=== PATIENT | male | born 1955 | race Caucasian/White ===

== ENCOUNTER 2017-07-21 15:33 | Inpatient (IN) | payer MEDICAID ==
[~2017-07-21] VITALS: Ht 172.7 cm; Wt 113.6 kg
[2017-07-21] MEDS ORDERED: ASPIRIN 325 MG TAB PO STA (15:47)
[2017-07-21] MEDS ORDERED: LABETALOL HCL 20MG INJ IV ONE ×2 (16:00→18:30)
[2017-07-21] MEDS ORDERED: SOD CHLORIDE 0.9% 1,000 ML IV ONE (16:00)
[2017-07-21 16:41] VITALS: TEMP 98.1
--- NOTE | 2017-07-21 16:51 | RADRPT ---
PROCEDURE: Portable chest x-ray. CLINICAL INDICATION: 61 years of age, male. Chest pain. TECHNIQUE: Portable AP view of the chest. COMPARISON: None available. FINDINGS: Atherosclerotic calcification and tortuosity of thoracic aorta. Borderline heart size. Lungs are clear. Negative for pleural effusion or pneumothorax. 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 No acute bony abnormality. IMPRESSION: Negative for evidence of an acute chest process. RPTAT: HCTS Physician Ailyn Date Time Electronically viewed and signed by Physician Ailyn on 07/21/2017 16:50 CS/
[2017-07-21] MEDS ORDERED: INSULIN LISPRO 100 UNIT/ML VIAL SC STA (18:28)
[2017-07-21] MEDS ORDERED: ACETAMINOPHEN 325 MG TAB PO PRN (18:30)
[2017-07-21] MEDS ORDERED: ONDANSETRON 4 MG INJ IV PRN ×2 (18:30→19:30)
--- NOTE | 2017-07-21 19:28 | HP ---
Date/Time of Note Date/Time of Note DATE: 07/21/17 TIME: 19:18 Assessment/Plan VTE Prophylaxis VTE Prophylaxis Intervention: SCD's Lines/Catheters IV Catheter Type (from Nrs): Saline Lock Assessment/Plan Assessment/Plan 61 yo M presents with hyperglycemia and hypertensive urgency. #hyperglycemia: suspect undiagnosed DM2 -check a1c -start basal/bolus insulin. no indication for insulin drip given no AG/no DKA -start IVFs -DM RN eval in the AM #HTN urgency: no evidence of end organ damage on clinical exam, therefore no compelling indication to drop pt's BP acutely to below a particular parameter over just a few hours. Indeed, dropping pt's BP too quickly could result in decreased organ perfusion! -start dual PO BP meds (max dose ccb, also start acei given DM2) -no compelling indication for PRNs. Pt has likely been living at this elevated BP for some time and again given he is asymptomatic, risk of rapid BP lowering likely outweighs benefit. Goal BP over next few days is <160/90 #thrombocytopenia: check LFTs to eval for chronic liver disease DVT prophx HPI/ROS Admit Date/Time Admit Date/Time Hx of Present Illness CC sent from clinic for elevated BG and BP HPI 61 yo M with pmhx obesity presented to a clinic today with c/o 2 weeks of dry mouth and polyuria. Eval there notable for hyperglycemia and htn and pt was sent to the ER for further eval. Pt does not recall the last time he saw a health care provider for any RHM. Pt denies any headache, blurred vision, chest pain, or SOB. PMH/Family/Social Past Medical History Medical History: no pertinent history Family History Significant Family History: diabetes Social History lives in the community Smoking Status: Former smoker Exam/Review of Systems Vital Signs Vitals Vital Signs Date Time Temp Pulse Resp B/P Pulse Ox O2 Delivery O2 Flow Rate FiO2 07/21/17 18:29 191/105 07/21/17 16:41 98.1 72 16 99 Room Air Exam Exam nad EOMI CN 2-12 intact, moves exts freely, 5/5 strength bl U and LEs lungs clear no mrg abd soft no rashes no edema BG noted. No AG. Labs Result Diagram: 07/21/17 1549 07/21/17 1549 Medications Medications Current Medications Miscellaneous Information (* Miscellaneous Pharmacy Order) Discontinue current oral sulfonylur... ONCE ONCE XX ; Start 07/21/17 at 19:00; Stop 07/21/17 at 19: 01; Status UNV Diagnostic Test (Pha) (Accu-Chek) 1 XX ; Start 07/22/17 at 02:00; Status UNV Insulin Glargine (Lantus) 17 unit QHS SC ; Start 07/21/17 at 21:00; Status UNV Miscellaneous Information (* Miscellaneous Pharmacy Order) HYPOGLYCEMIA PROTOCOL w... ONCE ONCE XX ; Start 07/21/17 at 19:00; Stop 07/21/17 at 19:01; Status UNV Miscellaneous Information Discontinue all previ... ONCE ONCE XX ; Start at 19:00; Stop 07/21/17 at 19:01; Status UNV Sodium Chloride (NS) 1,000 ml @ 125 mls/hr Q8H IV ; Start 07/21/17 at 19:30; Status UNV Amlodipine Besylate (Norvasc) 10 mg ONCE PO ; Start 07/21/17 at 19:30; Status UNV Lisinopril (Zestril) 20 mg ONCE ONCE PO ; Start 07/21/17 at 19:30; Stop at 19:31; Status UNV Ondansetron HCl (Zofran Tab) 4 mg Q6H PRN PO NAUSEA AND/OR VOMITING; Start 07/21/17 at 19:30; Status UNV Ondansetron HCl (Zofran Inj) 4 mg Q6H PRN IV NAUSEA AND/OR VOMITING; Start 07/21/17 at 19:30; Status UNV Metoclopramide HCl (Reglan) 10 mg Q6H PRN IV NAUSEA AND/OR VOMITING; Start 07/21/17 at 19:30; Status UNV Acetaminophen (Tylenol Tab) 650 mg Q6H PRN PO PAIN LEVEL 1-3 OR FEVER; Start 07/21/17 at 19:30; Status UNV Docusate Sodium (Colace) 100 mg Q12H PRN PO CONSTIPATION; Start 07/21/17 at 19: 30; Status UNV Magnesium Hydroxide (Milk Of Mag) 30 ml DAILY PRN PO CONSTIPATION; Start at 19:30; Status UNV Bisacodyl (Dulcolax) 5 mg DAILY PRN PO CONSTIPATION; Start 07/21/17 at 19:30; Status UNV Enoxaparin Sodium (Lovenox) 40 mg DAILY SC ; Start 07/22/17 at 09:00; Status UNV ALFRED CLINE MD Jul 21, 2017 19:28
[2017-07-21] MEDS ORDERED: ONDANSETRON 4 MG TAB PO PRN (19:30)
[2017-07-21] MEDS ORDERED: AMLODIPINE 10 MG TAB PO SCH (19:30)
[2017-07-21] MEDS ORDERED: METOCLOPRAMIDE 10 MG INJ IV PRN (19:30)
[2017-07-21] MEDS ORDERED: DOCUSATE SODIUM 100 MG CAP PO PRN (19:30)
[2017-07-21] MEDS ORDERED: NACL 0.9% 3 ML SYG IV SCH (19:30)
[2017-07-21] MEDS ORDERED: BISACODYL (EC) 5 MG TAB PO PRN (19:30)
[2017-07-21] MEDS ORDERED: MAGNESIUM HYDROXIDE 30ML CUP PO PRN (19:30)
[2017-07-21] MEDS ORDERED: LISINOPRIL 20 MG TAB PO ONE (19:30)
--- NOTE | 2017-07-21 19:50 | ERD ---
ER Documentation Chief Complaint Chief Complaint sent by pmd for htn and high blood glucose 406 @ clinic HPI This 61-year-old male presents with a high sugar at his clinic that he went to. He been peeing a lot more than usual. Also noted was extremely high blood pressure in triage. Patient does not like to see physicians and has i not seen a doctor before. He is unsure how long he might of had high blood pressure. Denies chest pain or shortness of breath currently. Not have any abdominal pain , nausea or vomiting. ROS All systems reviewed and are negative except as per history of present illness. Medications Home Meds No Active Prescriptions or Reported Meds Allergies Allergies: Coded Allergies: No Known Allergy (Unverified , 07/21/17) PMhx/Soc Medical and Surgical Hx: pt denies Medical Hx, pt denies Surgical Hx Hx Miscellaneous Medical Probl: No (PT denies going to the doctor.) Hx Alcohol Use: Yes (15 beers/week) Hx Substance Use: No Hx Tobacco Use: No Smoking Status: Former smoker Physical Exam Vitals Vital Signs Date Time Temp Pulse Resp B/P Pulse Ox O2 Delivery O2 Flow Rate FiO2 07/21/17 18:29 191/105 07/21/17 16:41 98.1 72 16 187/104 99 Room Air 07/21/17 15:37 98.1 92 18 211/108 99 Physical Exam Const: [] Head: Atraumatic Eyes: Normal Conjunctiva ENT: Normal External Ears, Nose and Mouth. Neck: Full range of motion..~ No meningismus. Resp: Clear to auscultation bilaterally Cardio: Regular rate and rhythm, no murmurs Abd: Soft, non tender, non distended. Normal bowel sounds Skin: No petechiae or rashes Back: No midline or flank tenderness Ext: No cyanosis, or edema Neur: Awake and alert Psych: Normal Mood and Affect Result Diagram: 07/21/17 1549 07/21/17 1549 Results 24 hrs Laboratory Tests Test 07/21/17 15:49 07/21/17 17:00 07/21/17 17:05 07/21/17 18:46 White Blood Count 10.110^3/ul Red Blood Count 4.7510^6/ul Hemoglobin 15.9g/dl Hematocrit 44.3% Mean Corpuscular Volume 93.3fl Mean Corpuscular Hemoglobin 33.5pg Mean Corpuscular Hemoglobin Concent 35.9g/dl Red Cell Distribution Width 11.9% Platelet Count 76635^3/UL Mean Platelet Volume 13.8fl Neutrophils % 65.4% Lymphocytes % 24.3% Monocytes % 6.4% Eosinophils % 3.1% Basophils % 0.4% Nucleated Red Blood Cells % 0.0/100WBC Neutrophils # 6.610^3/ul Lymphocytes # 2.510^3/ul Monocytes # 0.710^3/ul Eosinophils # 0.310^3/ul Basophils # 0.010^3/ul Nucleated Red Blood Cells # 0.010^3/ul Sodium Level 137mmol/L Potassium Level 3.8mmol/L Chloride Level 103mmol/L Carbon Dioxide Level 23mmol/L Anion Gap 15 Blood Urea Nitrogen 15mg/dl Creatinine 0.64mg/dl Glucose Level 474mg/dl Calcium Level 9.0mg/dl Troponin I < 0.012ng/ml B-Type Natriuretic Peptide 110PG/ML Total Bilirubin 0.5mg/dl Direct Bilirubin 0.00mg/dl Indirect Bilirubin 0.5mg/dl Aspartate Amino Transf (AST/SGOT) 76IU/L Alanine Aminotransferase (ALT/SGPT) 81IU/L Alkaline Phosphatase 167IU/L Total Protein 7.1g/dl Albumin 4.2g/dl Bedside Glucose 336mg/dL 311mg/dL Current Medications Medications (Trade) Dose Ordered Sig/Ron Route PRN Reason Start Time Stop Time Status Last Admin Dose Admin Aspirin (Aspirin) 325 mg ONCE STAT PO 07/21/17 15:47 07/21/17 15:52 DC 07/21/17 16:05 Labetalol HCl 20 mg 20 mg ONCE ONCE IV 07/21/17 16:00 07/21/17 16:01 DC 07/21/17 16:05 Sodium Chloride (NS) 1,000 ml @ 1,000 mls/hr Q1H ONCE IV 07/21/17 16:00 07/21/17 16:59 DC 07/21/17 16:05 Labetalol HCl (Labetalol) 20 mg ONCE ONCE IV 07/21/17 18:30 07/21/17 18:31 DC 07/21/17 18:48 Insulin Human Lispro (Humalog) 8 unit ONCE STAT SC 07/21/17 18:28 07/21/17 18:29 DC 07/21/17 18:46 Ondansetron HCl (Zofran Inj) 4 mg ER BRIDGE PRN IV NAUSEA AND/OR VOMITING 07/21/17 18:30 07/22/17 18:29 Acetaminophen (Tylenol Tab) 650 mg ER BRIDGE PRN PO MILD PAIN/FEVER 07/21/17 18:30 07/22/17 18:29 Miscellaneous Information (* Miscellaneous Pharmacy Order) Discontinue current oral sulfonylur... ONCE ONCE XX 07/21/17 19:00 07/21/17 19:01 UNV Diagnostic Test (Pha) (Accu-Chek) 1 ea 02 XX 07/22/17 02:00 UNV Insulin Glargine (Lantus) 17 unit QHS SC 07/21/17 21:00 UNV Insulin Aspart (Novolog Insulin Pen) 6 unit WITH MEALS SC 07/22/17 08:00 UNV Miscellaneous Information (* Miscellaneous Pharmacy Order) HYPOGLYCEMIA PROTOCOL w... ONCE ONCE XX 07/21/17 19:00 07/21/17 19:01 UNV Insulin Aspart (Novolog Insulin Pen) NOVOLOG *MILD* ALGORITHM WITH MEALS BEDTIME SC 07/21/17 21:00 UNV Miscellaneous Information Discontinue all previ... ONCE ONCE XX 07/21/17 19:00 07/21/17 19:01 UNV Sodium Chloride (NS) 1,000 ml @ 125 mls/hr Q8H IV 07/21/17 19:30 UNV Amlodipine Besylate (Norvasc) 10 mg ONCE PO 07/21/17 19:30 UNV Lisinopril (Zestril) 20 mg ONCE ONCE PO 07/21/17 19:30 07/21/17 19:31 UNV IV Flush (NS 3 ml) 3 ml PER PROTOCOL IV 07/21/17 19:30 UNV Ondansetron HCl (Zofran Tab) 4 mg Q6H PRN PO NAUSEA AND/OR VOMITING 07/21/17 19:30 UNV Ondansetron HCl (Zofran Inj) 4 mg Q6H PRN IV NAUSEA AND/OR VOMITING 07/21/17 19:30 UNV Metoclopramide HCl (Reglan) 10 mg Q6H PRN IV NAUSEA AND/OR VOMITING 07/21/17 19:30 UNV Acetaminophen (Tylenol Tab) 650 mg Q6H PRN PO PAIN LEVEL 1-3 OR FEVER 07/21/17 19:30 UNV Docusate Sodium (Colace) 100 mg Q12H PRN PO CONSTIPATION 07/21/17 19:30 UNV Magnesium Hydroxide (Milk Of Mag) 30 ml DAILY PRN PO CONSTIPATION 07/21/17 19:30 UNV Bisacodyl (Dulcolax) 5 mg DAILY PRN PO CONSTIPATION 07/21/17 19:30 UNV Enoxaparin Sodium (Lovenox) 40 mg DAILY SC 07/22/17 09:00 UNV Amlodipine Besylate (Norvasc) 10 mg DAILY PO 07/22/17 09:00 UNV Lisinopril (Zestril) 20 mg DAILY PO 07/22/17 09:00 UNV Procedures/MDM Likely long-standing hypertension hyperglycemia with malignant hypertension. Patient was given a liter of fluid in order to help lower sugar and then 8 mg of subcutaneous lispro insulin. He had refractory severe hypertension requiring 2 doses of labetalol in order to lower his pressure to a safer level and get the diastolic under 105. He is to be admitted for monitoring of sugar and blood pressure as well as starting on a regimen for both medical problems noted to prevent serious comorbidity. Signs of renal insufficiency yet. EKG interpretation: Normal sinus rhythm rate of 88, normal axis, normal intervals. Artifactual, no ST elevations or depressions concerning for acute ischemia but unable to evaluate T waves properly secondary to artifact. 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 Critical care time greater than 35 minutes: This includes treatment of malignant hypertension, use of multiple doses of vasoactive medication labetalol in order lower blood pressure to somewhat safer levels, treatment of severe hyperglycemia, review of chart, discussion with patient and admitting doctor. This does not include any billable procedures.. Departure Diagnosis: Primary Impression: Malignant hypertension Additional Impressions: Newly diagnosed diabetes Severe diabetic hypoglycemia Thrombocytopenia Condition: Serious FREDRICKJUANITAOMAR DO Jul 21, 2017 19:50
[2017-07-21] MEDS ORDERED: GLUCOSE GEL 15 GRAM TUBE BUCCAL PRN (20:00)
[2017-07-21] MEDS ORDERED: GLUCAGON 1 MG INJ IM PRN (20:00)
[2017-07-21] MEDS ORDERED: GLUCOSE GEL 15 GRAM TUBE PO PRN ×2 (20:00)
[2017-07-21] MEDS ORDERED: DEXTROSE 50% 50 ML SYRINGE IV PRN ×2 (20:00)
[2017-07-21 20:53] VITALS: PULSE 67
[2017-07-21] MEDS ORDERED: INSULIN GLARGINE [LANtus] 3 ML PEN SC SCH (21:00)
[2017-07-21 21:15] VITALS: BP 197/102; RESP 20
[2017-07-21 21:39] VITALS: Ht 172.7 cm; Wt 113.6 kg
[2017-07-21] MEDS: hydrALAzine 20 MG INJ IV PRN (21:51)
[2017-07-21] MEDS: INSULIN ASPART [NOVOLOG] 3 ML PEN SC SCH (22:03)
[2017-07-21] MEDS: SOD CHLORIDE 0.9% 1,000 ML IV SCH (22:30)
[2017-07-22] VITALS (15 sets, daily range): BP systolic 149–190; BP diastolic 72–93; PULSE 73–90; RESP 17–19
[2017-07-22] MEDS ORDERED: hydrALAzine 20 MG INJ IV ONE
[2017-07-22] MEDS: ACCU-CHEK XX SCH (02:12)
[2017-07-22] MEDS: SOD CHLORIDE 0.9% 1,000 ML IV SCH (02:50)
[2017-07-22] MEDS: INSULIN ASPART [NOVOLOG] 3 ML PEN SC SCH ×7 (08:14→20:41)
[2017-07-22] MEDS: ENOXAPARIN 40 MG/0.4 ML SYG SC SCH (08:14)
[2017-07-22] MEDS: AMLODIPINE 10 MG TAB PO SCH (08:18)
[2017-07-22] MEDS: hydrALAzine 20 MG INJ IV PRN ×2 (08:19→17:46)
[2017-07-22] MEDS ORDERED: LISINOPRIL 20 MG TAB PO SCH (09:00)
--- NOTE | 2017-07-22 09:20 | RADRPT ---
PROCEDURE: US Abdomen and Retroperitoneum. CLINICAL INDICATION: Elevated liver function tests. TECHNIQUE: Multiple real-time longitudinal and transverse images were acquired of the patient's ab domen and retroperitoneum utilizing a curved array transducer. COMPARISON: No prior studies are available for comparison. FINDINGS: The liver is normal in size and normal in echogenicity. The liver has a normal smooth surface. Ther e are 3 small liver cysts measuring 1.4 cm, 0.8 cm, and 0.7 cm. There is no other focal hepatic lesi on. Color Doppler and pulsed Doppler sonography demonstrate normal antegrade flow in the portal vein . The gallbladder is normal with no stones or wall thickening. The bile ducts are normal with the common bile duct measuring 5.0 mm in diameter. The spleen is normal in size. There is no focal splenic lesion. The pancreas is partially seen and is unremarkable. There is no free fluid. The right kidney measures 12.5 cm and the left kidney measures 13.3 cm. There is no renal mass. There is no hydronephrosis or calculus. The abdominal aorta is not dilated. The inferior vena cava is unremarkable. IMPRESSION: 1. Small benign hepatic cysts. 2. Otherwise unremarkable abdomen and retroperitoneum ultrasound. RPTAT: QQ .Dima Delgado MD, MD Date Time Electronically viewed and signed by .Dima Delgado MD, on 07/22/2017 09:20 .R/
[2017-07-22] MEDS ORDERED: POTASSIUM CHLORIDE (SR) 20 MEQ TAB PO STA (11:10)
--- NOTE | 2017-07-22 11:17 | PN ---
Date/Time of Note Date/Time of Note DATE: 07/22/17 TIME: 11:13 Assessment/Plan VTE Prophylaxis VTE Prophylaxis Intervention: SCD's Lines/Catheters IV Catheter Type (from Nrsg): Peripheral IV Assessment/Plan Assessment/Plan 1. Malignant HTN 2. DM with uncontrolled hyperglycemia 3. H/o HTN and DM II, insulin dependant Plan: stop IVF NS Give lantus 5 units SQ x 1 extra dose then change lantus to 20 units SQ QHS pt BP has been running despite getting amlodipine, lisinopril and IV hydrlaszine , will give hydrlazine 50mg po x 1 dose now then 50mg PO BID change lisinopril to 20mg po BID if BP continues to be high despite this change then we will consider switching him from amlodipine to nifedipine XL 60mg PO daily SCD for DVT prophylaxis Subjective 24 Hr Interval Summary Free Text/Dictation pt BP has been still running high, BS also high, on IVF NS at 125 cc/hr Exam/Review of Systems Vital Signs Vitals Vital Signs Date Time Temp Pulse Resp B/P Pulse Ox O2 Delivery O2 Flow Rate FiO2 07/22/17 08:15 85 07/22/17 08:08 178/79 07/22/17 07:38 97.3 19 96 07/22/17 04:30 Room Air Intake and Output 07/21/17 07/21/17 07/22/17 15:00 23:00 07:00 Intake Total 1000 ml 1050 ml Output Total 950 ml Balance 1000 ml 100 ml Exam Constitutional: alert Psych: no complaints Head: normocephalic Eyes: nl conjunctiva Neck: non-tender, supple Respiratory: clear to auscultation, diminished breath sounds, normal air movement Cardiovascular: nl pulses, regular rate and rhythm Gastrointestinal: non-tender, soft Musculoskeletal: nl extremities to inspection Extremities: normal pulses Neurological: DIRECTOR OF PHYSICAL SECURITY II-XII intact, nl mental status, nl speech, nl strength Results Result Diagram: 07/22/1751107/22/17511 Results 24 hrs Laboratory Tests Test 07/21/17 15:49 07/21/17 17:00 07/21/17 17:05 07/21/17 18:46 White Blood Count 10.1 Red Blood Count 4.75 Hemoglobin 15.9 Hematocrit 44.3 Mean Corpuscular Volume 93.3 Mean Corpuscular Hemoglobin 33.5 H Mean Corpuscular Hemoglobin Concent 35.9 Red Cell Distribution Width 11.9 Platelet Count 109 L Mean Platelet Volume 13.8 H Neutrophils % 65.4 Lymphocytes % 24.3 Monocytes % 6.4 Eosinophils % 3.1 Basophils % 0.4 Nucleated Red Blood Cells % 0.0 Neutrophils # 6.6 Lymphocytes # 2.5 Monocytes # 0.7 Eosinophils # 0.3 Basophils # 0.0 Nucleated Red Blood Cells # 0.0 Sodium Level 137 Potassium Level 3.8 Chloride Level 103 Carbon Dioxide Level 23 Anion Gap 15 Blood Urea Nitrogen 15 Creatinine 0.64 Glucose Level 474 *H Calcium Level 9.0 Troponin I < 0.012 B-Type Natriuretic Peptide 110 Hemoglobin A1c 12.1 H Total Bilirubin 0.5 Direct Bilirubin 0.00 Indirect Bilirubin 0.5 Aspartate Amino Transf (AST/SGOT) 76 H Alanine Aminotransferase (ALT/SGPT) 81 H Alkaline Phosphatase 167 H Total Protein 7.1 Albumin 4.2 Bedside Glucose 336 H 311 H Test 07/21/17 21:49 07/21/17 22:07 07/22/17 02:08 07/22/17 05:12 Bedside Glucose 283 H 313 H Creatine Kinase 64 55 Creatine Kinase Index 1.9 1.8 Creatinine Kinase MB (Mass) 1.22 0.98 Troponin I < 0.012 0.018 White Blood Count 10.0 Red Blood Count 4.44 L Hemoglobin 14.8 Hematocrit 41.9 L Mean Corpuscular Volume 94.4 Mean Corpuscular Hemoglobin 33.3 H Mean Corpuscular Hemoglobin Concent 35.3 Red Cell Distribution Width 12.2 Platelet Count 95 L Mean Platelet Volume 13.9 H Neutrophils % 70.7 Lymphocytes % 19.4 Monocytes % 5.3 Eosinophils % 3.9 Basophils % 0.4 Nucleated Red Blood Cells % 0.0 Neutrophils # 7.1 Lymphocytes # 1.9 Monocytes # 0.5 Eosinophils # 0.4 Basophils # 0.0 Nucleated Red Blood Cells # 0.0 Sodium Level 143 Potassium Level 3.3 L Chloride Level 111 H Carbon Dioxide Level 24 Anion Gap 11 Blood Urea Nitrogen 11 Creatinine 0.56 L Glucose Level 270 #H Calcium Level 8.4 Phosphorus Level 3.2 Magnesium Level 1.9 Total Bilirubin 0.5 Direct Bilirubin 0.00 Indirect Bilirubin 0.5 Aspartate Amino Transf (AST/SGOT) 71 H Alanine Aminotransferase (ALT/SGPT) 79 H Alkaline Phosphatase 121 Total Protein 6.3 Albumin 3.4 Globulin 2.90 Albumin/Globulin Ratio 1.17 Triglycerides Level 127 Cholesterol Level 118 LDL Cholesterol, Calculated 56 HDL Cholesterol 37 Cholesterol/HDL Ratio 3.1 Thyroid Stimulating Hormone (TSH) 1.110 Hepatitis C Antibody NEGATIVE Test 07/22/17 08:10 Bedside Glucose 228 H Medications Medications Current Medications Diagnostic Test (Pha) (Accu-Chek) 1 ea 02 XX Last administered on 07/22/17 02: 12; Admin Dose 1 EA; Start 07/22/17 at 02:00 Ondansetron HCl (Zofran Tab) 4 mg Q6H PRN PO NAUSEA AND/OR VOMITING; Start 07/21/17 at 19:30 Ondansetron HCl (Zofran Inj) 4 mg Q6H PRN IV NAUSEA AND/OR VOMITING; Start 07/21/17 at 19:30 Metoclopramide HCl (Reglan) 10 mg Q6H PRN IV NAUSEA AND/OR VOMITING; Start 07/21/17 at 19:30 Acetaminophen (Tylenol Tab) 650 mg Q6H PRN PO PAIN LEVEL 1-3 OR FEVER; Start 07/21/17 at 19:30 Docusate Sodium (Colace) 100 mg Q12H PRN PO CONSTIPATION; Start 07/21/17 at 19: 30 Magnesium Hydroxide (Milk Of Mag) 30 ml DAILY PRN PO CONSTIPATION; Start at 19:30 Bisacodyl (Dulcolax) 5 mg DAILY PRN PO CONSTIPATION; Start 07/21/17 at 19:30 Enoxaparin Sodium (Lovenox) 40 mg DAILY SC Last administered on 07/22/17 08:14 ; Admin Dose 40 MG; Start 07/22/17 at 09:00 Amlodipine Besylate (Norvasc) 10 mg DAILY PO Last administered on 07/22/17 08: 18; Admin Dose 10 MG; Start 07/22/17 at 09:00 Miscellaneous Information 1 ea NOTE XX ; Start 07/21/17 at 20:00 Glucose (Glutose) 15 gm Q15M PRN PO DECREASED GLUCOSE; Start 07/21/17 at 20:00 Glucose (Glutose) 22.5 gm Q15M PRN PO DECREASED GLUCOSE; Start 07/21/17 at 20: 00 Dextrose (D50w Syringe) 25 ml Q15M PRN IV DECREASED GLUCOSE; Start 07/21/17 at 20:00 Dextrose (D50w Syringe) 50 ml Q15M PRN IV DECREASED GLUCOSE; Start 07/21/17 at 20:00 Glucagon (Glucagen) 1 mg Q15M PRN IM DECREASED GLUCOSE; Start 07/21/17 at 20:00 Glucose (Glutose) 15 gm Q15M PRN BUCCAL DECREASED GLUCOSE; Start 07/21/17 at 20 :00 Hydralazine HCl (Apresoline) 10 mg Q4H PRN IV ELEVATED BLOOD PRESSURE Last administered on 07/22/17 08:19; Admin Dose 10 MG; Start 07/21/17 at 21:30 Lisinopril (Zestril) 20 mg BID PO ; Start 07/22/17 at 21:00 Hydralazine HCl (Apresoline) 50 mg ONCE ONCE PO ; Start 07/22/17 at 11:30; Stop 07/22/17 at 11:31 Hydralazine HCl (Apresoline) 50 mg BID PO ; Start 07/22/17 at 21:00; Status UNV Insulin Glargine (Lantus) 5 unit ONCE ONCE SC ; Start 07/22/17 at 11:30; Stop 07/22/17 at 11:31; Status UNV Insulin Glargine (Lantus) 20 unit QHS SC ; Start 07/22/17 at 21:00; Status CHAPO SOSA MD Jul 22, 2017 11:17
[2017-07-22] MEDS ORDERED: INSULIN GLARGINE [LANtus] 3 ML PEN SC ONE (11:30)
[2017-07-22] MEDS: LISINOPRIL 20 MG TAB PO SCH (20:29)
[2017-07-22] MEDS: INSULIN GLARGINE [LANtus] 3 ML PEN SC SCH (20:41)
[2017-07-23] VITALS (11 sets, daily range): BP systolic 140–187; BP diastolic 83–95; PULSE 69–101; RESP 16–20
[2017-07-23] MEDS: ACCU-CHEK XX SCH (02:12)
[2017-07-23] MEDS: hydrALAzine 20 MG INJ IV PRN ×2 (05:01→12:08)
[2017-07-23] MEDS: LISINOPRIL 20 MG TAB PO SCH ×2 (08:16→20:58)
[2017-07-23] MEDS: AMLODIPINE 10 MG TAB PO SCH (08:16)
[2017-07-23] MEDS: INSULIN ASPART [NOVOLOG] 3 ML PEN SC SCH ×7 (08:21→21:03)
[2017-07-23] MEDS: ENOXAPARIN 40 MG/0.4 ML SYG SC SCH (08:22)
--- NOTE | 2017-07-23 13:24 | PN ---
Date/Time of Note Date/Time of Note DATE: 07/23/17 TIME: 13:19 Assessment/Plan VTE Prophylaxis VTE Prophylaxis Intervention: SCD's Lines/Catheters IV Catheter Type (from Nrs): Saline Lock Urinary Cath still in place: No Assessment/Plan Assessment/Plan 1. Malignant HTN 2. DM with uncontrolled hyperglycemia 3. H/o HTN and DM II, insulin dependant Plan: continue lantus to 20 units SQ QHS- increase mealtime novolog to 10 units TID with meal pt BP has been running high despite adjustment in BP meds yesterday( increasing lisinopril to 20mg BID, Hydralazine to 50mg BID)- today BP is still in systolic 180s- will d/c amlodipine, start pt on Procardia XL 60mg PO BID downgrade to med/surge floor SCD for DVT prophylaxis Subjective 24 Hr Interval Summary Free Text/Dictation BP is still running high, systolic in 180s despite being adjustment in BP meds, BS in 250s Exam/Review of Systems Vital Signs Vitals Vital Signs Date Time Temp Pulse Resp B/P Pulse Ox O2 Delivery O2 Flow Rate FiO2 07/23/17 12:13 99 07/23/17 11:39 98.0 20 187/92 98 07/22/17 20:00 Room Air Intake and Output 07/22/17 07/22/17 07/23/17 15:00 23:00 07:00 Intake Total 1100 ml 700 ml Balance 1100 ml 700 ml Exam Constitutional: alert Psych: no complaints Head: normocephalic Eyes: nl conjunctiva Neck: non-tender, supple Respiratory: clear to auscultation, diminished breath sounds, normal air movement Cardiovascular: nl pulses, regular rate and rhythm Gastrointestinal: non-tender, soft Musculoskeletal: nl extremities to inspection Extremities: normal pulses 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, nl mental status, nl speech, nl strength Results Result Diagram: 07/23/17 0800 07/23/17 0800 Results 24 hrs Laboratory Tests Test 07/22/17 16:59 07/22/17 20:32 07/23/17 02:00 07/23/17 08:00 Bedside Glucose 211 246 H 224 H White Blood Count 10.1 Red Blood Count 4.82 Hemoglobin 16.0 Hematocrit 46.6 Mean Corpuscular Volume 96.7 Mean Corpuscular Hemoglobin 33.2 H Mean Corpuscular Hemoglobin Concent 34.3 Red Cell Distribution Width 12.5 Platelet Count 106 L Mean Platelet Volume 13.6 H Neutrophils % 67.0 Lymphocytes % 21.4 Monocytes % 6.0 Eosinophils % 4.7 Basophils % 0.4 Nucleated Red Blood Cells % 0.0 Neutrophils # 6.7 Lymphocytes # 2.2 Monocytes # 0.6 Eosinophils # 0.5 Basophils # 0.0 Nucleated Red Blood Cells # 0.0 Prothrombin Time 13.6 Prothrombin Time Ratio 1.1 INR International Normalized Ratio 1.04 Activated Partial Thromboplast Time 30.3 Sodium Level 142 Potassium Level 4.2 Chloride Level 107 Carbon Dioxide Level 26 Anion Gap 13 Blood Urea Nitrogen 9 Creatinine 0.67 Glucose Level 230 H Calcium Level 8.7 Total Bilirubin 0.8 Direct Bilirubin 0.00 Indirect Bilirubin 0.8 Aspartate Amino Transf (AST/SGOT) 63 H Alanine Aminotransferase (ALT/SGPT) 79 H Alkaline Phosphatase 119 Total Protein 7.0 Albumin 3.7 Globulin 3.30 H Albumin/Globulin Ratio 1.12 Test 07/23/17 08:13 07/23/17 12:03 Bedside Glucose 223 H 247 H Medications Medications Current Medications Diagnostic Test (Pha) (Accu-Chek) 1 ea 02 XX Last administered on 07/23/17t 02: 12; Admin Dose 1 EA; Start 07/22/17 at 02:00 Ondansetron HCl (Zofran Tab) 4 mg Q6H PRN PO NAUSEA AND/OR VOMITING; Start 07/21/17 at 19:30 Ondansetron HCl (Zofran Inj) 4 mg Q6H PRN IV NAUSEA AND/OR VOMITING; Start 07/21/17 at 19:30 Metoclopramide HCl (Reglan) 10 mg Q6H PRN IV NAUSEA AND/OR VOMITING; Start 07/21/17 at 19:30 Acetaminophen (Tylenol Tab) 650 mg Q6H PRN PO PAIN LEVEL 1-3 OR FEVER; Start 07/21/17 at 19:30 Docusate Sodium (Colace) 100 mg Q12H PRN PO CONSTIPATION; Start 07/21/17 at 19: 30 Magnesium Hydroxide (Milk Of Mag) 30 ml DAILY PRN PO CONSTIPATION; Start at 19:30 Bisacodyl (Dulcolax) 5 mg DAILY PRN PO CONSTIPATION; Start 07/21/17 at 19:30 Enoxaparin Sodium (Lovenox) 40 mg DAILY SC Last administered on 07/23/17 08:22 ; Admin Dose 40 MG; Start 07/22/17 at 09:00 Amlodipine Besylate (Norvasc) 10 mg DAILY PO Last administered on 07/23/17 08: 16; Admin Dose 10 MG; Start 07/22/17 at 09:00 Miscellaneous Information 1 ea NOTE XX ; Start 07/21/17 at 20:00 Glucose (Glutose) 15 gm Q15M PRN PO DECREASED GLUCOSE; Start 07/21/17 at 20:00 Glucose (Glutose) 22.5 gm Q15M PRN PO DECREASED GLUCOSE; Start 07/21/17 at 20: 00 Dextrose (D50w Syringe) 25 ml Q15M PRN IV DECREASED GLUCOSE; Start 07/21/17 at 20:00 Dextrose (D50w Syringe) 50 ml Q15M PRN IV DECREASED GLUCOSE; Start 07/21/17 at 20:00 Glucagon (Glucagen) 1 mg Q15M PRN IM DECREASED GLUCOSE; Start 07/21/17 at 20:00 Glucose (Glutose) 15 gm Q15M PRN BUCCAL DECREASED GLUCOSE; Start 07/21/17 at 20 :00 Hydralazine HCl (Apresoline) 10 mg Q4H PRN IV ELEVATED BLOOD PRESSURE Last administered on 07/23/17 12:08; Admin Dose 10 MG; Start 07/21/17 at 21:30 Lisinopril (Zestril) 20 mg BID PO Last administered on 07/23/17 08:16; Admin Dose 20 MG; Start 07/22/17 at 21:00 Hydralazine HCl (Apresoline) 50 mg BID PO Last administered on 07/23/17 08:15 ; Admin Dose 50 MG; Start 07/22/17 at 21:00 Insulin Glargine (Lantus) 20 unit QHS SC Last administered on 07/22/17 20:41; Admin Dose 20 UNIT; Start 07/22/17 at 21:00 CHAPO LAWS MD Jul 23, 2017 13:24
[2017-07-23] MEDS ORDERED: NIFEdipine (XL) 60 MG TAB PO ONE (13:30)
[2017-07-23] MEDS: INSULIN GLARGINE [LANtus] 3 ML PEN SC SCH (21:04)
[2017-07-23] MEDS: NIFEdipine (XL) 60 MG TAB PO SCH (22:36)
[2017-07-24] VITALS (12 sets, daily range): BP systolic 124–156; BP diastolic 63–89; PULSE 82–95; RESP 16–20
[2017-07-24] MEDS: ACCU-CHEK XX SCH (01:40)
[2017-07-24] MEDS: LISINOPRIL 20 MG TAB PO SCH ×2 (08:38→20:12)
[2017-07-24] MEDS: NIFEdipine (XL) 60 MG TAB PO SCH ×2 (08:39→20:12)
[2017-07-24] MEDS: INSULIN ASPART [NOVOLOG] 3 ML PEN SC SCH ×7 (08:41→20:16)
[2017-07-24] MEDS: ENOXAPARIN 40 MG/0.4 ML SYG SC SCH (08:42)
[2017-07-24] MEDS: ACETAMINOPHEN 325 MG TAB PO PRN ×2 (16:15→21:38)
[2017-07-24] MEDS: INSULIN GLARGINE [LANtus] 3 ML PEN SC SCH (20:15)
--- NOTE | 2017-07-24 21:32 | PN ---
Date/Time of Note Date/Time of Note DATE: 07/24/17 TIME: 21:29 Assessment/Plan VTE Prophylaxis VTE Prophylaxis Intervention: SCD's Lines/Catheters IV Catheter Type (from Nrsg): Saline Lock Urinary Cath still in place: No Assessment/Plan Assessment/Plan 1. Malignant HTN 2. DM with uncontrolled hyperglycemia 3. H/o HTN and DM II, insulin dependant Plan: continue lantus to 20 units SQ QHS- increased mealtime novolog to 10 units TID with meal pt BP has been running high despite adjustment in BP meds yesterday( increasing lisinopril to 20mg BID, Hydralazine to 50mg BID)- today BP is still in systolic 180s- will d/c amlodipine, started pt on Procardia XL 60mg PO BID- need better BP control prior to d/c downgrade to med/surge floor SCD for DVT prophylaxis pt will need to check if Procadizl XL 60mg BID is covered by his insuranc or not . Subjective 24 Hr Interval Summary Free Text/Dictation c/o Nausea, Bp systolic in 150-160s, BS still in 200s, afebrile, BP stable Exam/Review of Systems Vital Signs Vitals Vital Signs Date Time Temp Pulse Resp B/P Pulse Ox O2 Delivery O2 Flow Rate FiO2 07/24/17 19:57 98.0 99 19 124/71 95 07/24/17 17:09 Room Air Intake and Output 07/23/17 07/23/17 07/24/17 15:00 23:00 07:00 Intake Total 1000 ml 700 ml Balance 1000 ml 700 ml Exam Constitutional: alert Respiratory: clear to auscultation, diminished breath sounds, normal air movement Cardiovascular: nl pulses, regular rate and rhythm Gastrointestinal: non-tender, soft Musculoskeletal: nl extremities to inspection Extremities: normal pulses 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, nl mental status, nl speech, nl strength Results Result Diagram: 07/23/17 0800 07/23/17 0800 Results 24 hrs Laboratory Tests Test 07/24/17 01:36 07/24/17 08:36 07/24/17 11:50 07/24/17 17:13 Bedside Glucose 235 H 221 H 307 H 177 Test 07/24/17 20:13 Bedside Glucose 187 Medications Medications Current Medications Diagnostic Test (Pha) (Accu-Chek) 1 XX Last administered on 07/24/17 01: 40; Admin Dose 1 EA; Start 07/22/17 at 02:00 Ondansetron HCl (Zofran Tab) 4 mg Q6H PRN PO NAUSEA AND/OR VOMITING; Start 07/21/17 at 19:30 Ondansetron HCl (Zofran Inj) 4 mg Q6H PRN IV NAUSEA AND/OR VOMITING; Start 07/21/17 at 19:30 Metoclopramide HCl (Reglan) 10 mg Q6H PRN IV NAUSEA AND/OR VOMITING; Start 07/21/17 at 19:30 Acetaminophen (Tylenol Tab) 650 mg Q6H PRN PO PAIN LEVEL 1-3 OR FEVER Last administered on 07/24/17 16:15; Admin Dose 650 MG; Start 07/21/17 at 19:30 Docusate Sodium (Colace) 100 mg Q12H PRN PO CONSTIPATION; Start 07/21/17 at 19: 30 Magnesium Hydroxide (Milk Of Mag) 30 ml DAILY PRN PO CONSTIPATION; Start at 19:30 Bisacodyl (Dulcolax) 5 mg DAILY PRN PO CONSTIPATION; Start 07/21/17 at 19:30 Enoxaparin Sodium (Lovenox) 40 mg DAILY SC Last administered on 07/24/17 08:42 ; Admin Dose 40 MG; Start 07/22/17 at 09:00 Miscellaneous Information 1 ea NOTE XX ; Start 07/21/17 at 20:00 Glucose (Glutose) 15 gm Q15M PRN PO DECREASED GLUCOSE; Start 07/21/17 at 20:00 Glucose (Glutose) 22.5 gm Q15M PRN PO DECREASED GLUCOSE; Start 07/21/17 at 20: 00 Dextrose (D50w Syringe) 25 ml Q15M PRN IV DECREASED GLUCOSE; Start 07/21/17 at 20:00 Dextrose (D50w Syringe) 50 ml Q15M PRN IV DECREASED GLUCOSE; Start 07/21/17 at 20:00 Glucagon (Glucagen) 1 mg Q15M PRN IM DECREASED GLUCOSE; Start 07/21/17 at 20:00 Glucose (Glutose) 15 gm Q15M PRN BUCCAL DECREASED GLUCOSE; Start 07/21/17 at 20 :00 Hydralazine HCl (Apresoline) 10 mg Q4H PRN IV ELEVATED BLOOD PRESSURE Last administered on 07/23/17 12:08; Admin Dose 10 MG; Start 07/21/17 at 21:30 Lisinopril (Zestril) 20 mg BID PO Last administered on 07/24/17 20:12; Admin Dose 20 MG; Start 07/22/17 at 21:00 Hydralazine HCl (Apresoline) 50 mg BID PO Last administered on 07/24/17 20:11 ; Admin Dose 50 MG; Start 07/22/17 at 21:00 Insulin Glargine (Lantus) 20 unit QHS SC Last administered on 07/24/17 20:15; Admin Dose 20 UNIT; Start 07/22/17 at 21:00 Nifedipine (Procardia Xl) 60 mg BID PO Last administered on 07/24/17 20:12; Admin Dose 60 MG; Start 07/23/17 at 23:00 CHAPO LAWS MD Jul 24, 2017 21:32
[2017-07-25 02:06] VITALS: BP 123/73; RESP 18
[2017-07-25] MEDS: ACCU-CHEK XX SCH (02:07)
[2017-07-25] MEDS: INSULIN ASPART [NOVOLOG] 3 ML PEN SC SCH ×4 (07:58→11:53)
[2017-07-25 08:07] VITALS: BP 138/77; RESP 18
[2017-07-25] MEDS: NIFEdipine (XL) 60 MG TAB PO SCH (08:11)
[2017-07-25] MEDS: LISINOPRIL 20 MG TAB PO SCH (08:12)
[2017-07-25] MEDS: ENOXAPARIN 40 MG/0.4 ML SYG SC SCH (08:15)
--- NOTE | 2017-07-25 08:34 | RADRPT ---
PROCEDURE: XR Left Heel. CLINICAL INDICATION: Left heel pain. TECHNIQUE: Two views of the left heel are available for review. Lateral and axial. COMPARISON: None available FINDINGS: There is no fracture or dislocation. Vascular calcifications are present consistent with atherosclerosis. Articular surfaces are intact. There is a plantar calcaneal spur. There is no lytic or blastic lesion. There is no radiopaque foreign body. IMPRESSION: 1. Atherosclerosis. 2. Plantar calcaneal spur. 3. Otherwise unremarkable left calcaneus x-ray series. RPTAT: QQ .Dima Delgado MD, Date Time Electronically viewed and signed by .Dima Delgado MD, on 07/25/2017 08:34 .R/
--- NOTE | 2017-07-25 08:39 | RADRPT ---
PROCEDURE: XR Left Foot. CLINICAL INDICATION: Left foot pain. TECHNIQUE: Three views. Frontal, lateral, and oblique. COMPARISON: None. FINDINGS: There is no fracture or dislocation. Vascular calcifications are present consistent with atherosclerosis. Articular surfaces are intact. There is a plantar calcaneal spur. There is no lytic or blastic lesion. There is no radiopaque foreign body. IMPRESSION: 1. Atherosclerosis. 2. Plantar calcaneal spur. 3. Otherwise unremarkable images of the left foot. RPTAT: QQ .Dima Delgado MD, MD Date Time Electronically viewed and signed by .Dima Delgado MD, on 07/25/2017 08:39 .R/
[2017-07-25] MEDS: ACETAMINOPHEN 325 MG TAB PO PRN (10:24)
[2017-07-25] MEDS ORDERED: NOVO3I SC (14:38)
[2017-07-25] MEDS ORDERED: LANT3I SC (14:38)
[2017-07-25] MEDS ORDERED: HYDR-3672 PO (14:38)
[2017-07-25] MEDS ORDERED: LISI20TA11 PO (14:38)
[2017-07-25] MEDS ORDERED: NIFE60TA7 PO (14:38)
--- NOTE | 2017-07-25 14:45 | DS ---
Date/Time of Note Date/Time of Note DATE: 07/25/17 TIME: 14:40 Discharge Summary Admission/Discharge Info Admit Date/Time Jul 21, 2017 at 18:30 Discharge Date/Time Discharge Diagnosis 1. Newly diagnosed DM, on insulins, follow up with PCP 2. HTN, controlled, follow up with PCP 3. Obesity, lose weight Patient Condition: Stable Hospital Course 61 yo M with pmhx obesity presented to a clinic today with c/o 2 weeks of dry mouth and polyuria. Eval there notable for hyperglycemia and htn and pt was sent to the ER for further eval. Pt does not recall the last time he saw a health care provider for any RHM. Pt denies any headache, blurred vision, chest pain, or SOB. Patient is found of having DM with BG 474 and HbA1c 12,1. Patient is getting lantus 20 units qhs with premeal insulin 10 units. Patient is instructed to follow up with PCP to adjust insulin dosage. Blood pressure was 211/108 on admission that has been resistant to antihypertensives. Blood pressure is well contrlled with multiple antihypertensives with procardia XL, lisinopril and hydralazine. Antihypertensives needs to be adjusted per PCP in office. Home Meds Active Scripts Insulin Glargine* (Lantus*) 100 Unit/Ml Soln, 20 UNIT SC QHS for 30 Days Prov:WISAM CARLTON MD 07/25/17 Insulin Aspart* (Novolog Insulin Pen*) 100 Unit/Ml Soln, 10 UNIT SC WITH MEALS for 30 Days Prov:WISAM CARLTON MD 07/25/17 Lisinopril* (Lisinopril*) 20 Mg Tablet, 20 MG PO BID for 30 Days, #30 TAB Prov:WISAM CARLTON MD 07/25/17 Nifedipine (Afeditab CR) 60 Mg Tablet.sa, 60 MG PO BID for 30 Days Prov:WISAM CARLTON MD 07/25/17 Hydralazine Hcl* (Apresoline*) 50 Mg Tab, 50 MG PO BID for 30 Days, TAB Prov:WISAM CARLTON MD 07/25/17 Follow-up Plan PCP in one week Primary Care Provider Care Physician No Primary Pending Labs Laboratory Tests Test 07/24/17 17:13 07/24/17 20:13 07/25/17 02:01 07/25/17 04:35 Bedside Glucose 177mg/dL (70-220) 187mg/dL (70-220) 158mg/dL (70-220) White Blood Count 8.910^3/ul (4.8-10.8) Red Blood Count 4.5510^6/ul (4.70-6.10) Hemoglobin 14.9g/dl (14.0-18.0) Hematocrit 44.0% (42.0-52.0) Mean Corpuscular Volume 96.7fl (82.0-101.0) Mean Corpuscular Hemoglobin 32.7pg (29.0-33.0) Mean Corpuscular Hemoglobin Concent 33.9g/dl (32.0-37.0) Red Cell Distribution Width 12.5% (11.5-14.5) Platelet Count 41091^3/UL (140-415) Mean Platelet Volume 14.0fl (7.4-10.4) Neutrophils % 56.9% (39.0-77.0) Lymphocytes % 29.8% (15.0-51.0) Monocytes % 6.8% (0.0-11.0) Eosinophils % 5.8% (0.0-7.0) Basophils % 0.3% (0.0-2.0) Nucleated Red Blood Cells % 0.0/100WBC (0.0-0.0) Neutrophils # 5.110^3/ul (1.6-7.5) Lymphocytes # 2.710^3/ul (0.8-2.9) Monocytes # 0.610^3/ul (0.3-0.9) Eosinophils # 0.510^3/ul (0.0-0.5) Basophils # 0.010^3/ul (0.0-0.1) Nucleated Red Blood Cells # 0.010^3/ul (0.0-0.0) Prothrombin Time 13.9Sec (12.2-14.2) Prothrombin Time Ratio 1.1 INR International Normalized Ratio 1.07 Activated Partial Thromboplast Time 32.0Sec (25.0-35.0) Sodium Level 138mmol/L (135-144) Potassium Level 4.1mmol/L (3.5-5.1) Chloride Level 103mmol/L (97-110) Carbon Dioxide Level 27mmol/L (21-31) Anion Gap 12 (8-16) Blood Urea Nitrogen 17mg/dl (7-20) Creatinine 0.74mg/dl (0.61-1.24) Glucose Level 162mg/dl (70-220) Calcium Level 8.4mg/dl (8.4-10.2) Test 07/25/17 07:56 07/25/17 11:47 Bedside Glucose 179mg/dL (70-220) 267mg/dL (70-220) WISAM CARLTON MD Jul 25, 2017 14:45
[2017-07-25] MEDS ORDERED: BISACODYL (EC) 5 MG TAB PO ONE (15:00)
[2017-07-25 15:15] VITALS: BP 130/70; PULSE 95; RESP 16
== END 2017-07-25 18:51 | disposition home or self-care (01) | DRG 305 ==
LOC: E/R 15:33 → MS4 18:30 → PP2 07-24 16:55
PROVIDERS: ADMIT Internal Medicine; ATTEND Internal Medicine
DX: I16.0 Hypertensive urgency (principal); E11.65 Type 2 diabetes mellitus with hyperglycemia; D69.6 Thrombocytopenia, unspecified; E66.9 Obesity, unspecified; Z68.38 Body mass index [BMI] 38.0-38.9, adult; F10.10 Alcohol abuse, uncomplicated; Z87.891 Personal history of nicotine dependence; Z79.4 Long term (current) use of insulin
CPT/HCPCS: 36415; 71010; 76700; 80048; 80053; 80061; 80076; 82550; 82553; 82962; 83036; 83735; 83880; 84100; 84443; 84484; 85025; 85610; 85730; 86803; 93005; 96361; 96372; 96374; 96376; J0360; J1650; J1815; J7030

== ENCOUNTER → 2017-08-25 | Outpatient (CLI) | payer MEDICAID ==
[~2017-08-25] MED LIST: HYDR-3672 PO; LANT3I SC; LISI20TA11 PO; NIFE60TA7 PO; NOVO3I SC
== END | disposition home or self-care (01) ==
LOC: DIB 13:00
PROVIDERS: ATTEND Emergency Medicine
DX: E11.9 Type 2 diabetes mellitus without complications (principal)

== ENCOUNTER 2017-08-30 16:45 | Emergency (ER) | payer MEDICAID ==
[~2017-08-30] VITALS: Ht 180.3 cm; Wt 108.3 kg
[2017-08-30 17:23] VITALS: Ht 180.3 cm; Wt 108.3 kg
[2017-08-30] MEDS ORDERED: NICARDipine HCL 30 MG CAPSULE PO ONE (18:00)
[2017-08-30] MEDS ORDERED: LISINOPRIL 20 MG TAB PO ONE (18:00)
[2017-08-30 18:14] LABS: BASOPHILS % 0.5 % (0.0-2.0); EOSINOPHILS # 0.2 10^3/ul (0.0-0.5); EOSINOPHILS % 1.9 % (0.0-7.0); HEMATOCRIT 42.4 % (42.0-52.0); HEMOGLOBIN 15.1 g/dl (14.0-18.0); LYMPHOCYTES % 35.2 % (15.0-51.0); MEAN CORPUSCULAR HEMOGLOBIN 33.5 pg (29.0-33.0); MEAN CORPUSCULAR HGB CONC 35.6 g/dl (32.0-37.0); MEAN PLATELET VOLUME 11.8 fl (7.4-10.4); MONOCYTE # 0.6 10^3/ul (0.3-0.9); MONOCYTES % 6.8 % (0.0-11.0); NEUTROPHIL # 4.7 10^3/ul (1.6-7.5); NEUTROPHILS % 55.5 % (39.0-77.0); PLATELET COUNT 155 10^3/UL (140-415); RED BLOOD COUNT 4.51 10^6/ul (4.70-6.10); RED CELL DISTRIBUTION WIDTH 12.1 % (11.5-14.5); WHITE BLOOD COUNT 8.4 10^3/ul (4.8-10.8)
[2017-08-30 18:34] LABS: ANION GAP 15 (8-16); BLOOD UREA NITROGEN 15 mg/dl (7-20); CALCIUM 9.1 mg/dl (8.4-10.2); CARBON DIOXIDE 24 mmol/L (21-31); CHLORIDE 107 mmol/L (97-110); CREATININE 0.71 mg/dl (0.61-1.24); GLUCOSE 97 mg/dl (70-220); POTASSIUM 3.8 mmol/L (3.5-5.1); SODIUM 142 mmol/L (135-144)
[2017-08-30 18:57] LABS: TROPONIN-I < 0.012 ng/ml (0.00-0.12)
[2017-08-30] MEDS ORDERED: LISI20TA11 PO (21:11)
[2017-08-30] MEDS ORDERED: HYDR-3672 PO (21:11)
--- NOTE | 2017-08-30 21:20 | ERD ---
ER Documentation Chief Complaint Chief Complaint meds med refill for "hypertension Medications" HPI 61-year-old male was noted to have severe hypertension in triage. He presents for refill of his blood pressure medications he ran out of 3 days ago. He denies chest pain, shortness of breath, headache, altered mental status. Is been urinating normally. He checks his sugars regularly at home and has brought his log which shows that he has excellent control of his hyperglycemia with ranges from 83-120 at the highest. However he does not have any record for his blood pressure does not know what regularly runs. He is on hydralazine 50 mg twice daily as well as lisinopril 20 mg twice daily. States his regimen has worked for him. Was unable to see his primary care doctor last week. ROS All systems reviewed and are negative except as per history of present illness. Medications Home Meds Active Scripts Lisinopril* (Lisinopril*) 20 Mg Tablet, 20 MG PO BID, #60 TAB Prov:OMAR ALCALA DO 08/30/17 Hydralazine Hcl* (Hydralazine Hcl*) 50 Mg Tab, 50 MG PO BID, #60 TAB Prov:OMAR ALCALA DO 08/30/17 Insulin Glargine* (Lantus*) 100 Unit/Ml Soln, 20 UNIT SC QHS for 30 Days Prov:WISAM CARLTON MD 07/25/17 Insulin Aspart* (Novolog Insulin Pen*) 100 Unit/Ml Soln, 10 UNIT SC WITH MEALS for 30 Days Prov:WISAM CARLTON MD 07/25/17 Lisinopril* (Lisinopril*) 20 Mg Tablet, 20 MG PO BID for 30 Days, #30 TAB Prov:WISAM CARLTON MD 07/25/17 Nifedipine (Afeditab CR) 60 Mg Tablet.sa, 60 MG PO BID for 30 Days Prov:WISAM CARLTON MD 07/25/17 Hydralazine Hcl* (Apresoline*) 50 Mg Tab, 50 MG PO BID for 30 Days, TAB Prov:WISAM CARLTON MD 07/25/17 Allergies Allergies: Coded Allergies: No Known Allergy (Unverified , 07/24/17) PMhx/Soc History of Surgery: No Hx Cardiac Disorders: Yes (HTN) Hx Miscellaneous Medical Probl: Yes (DM) Hx Alcohol Use: Yes (15 beers a week) Hx Substance Use: No Hx Tobacco Use: No Smoking Status: Never smoker Physical Exam Vitals Vital Signs Date Time Temp Pulse Resp B/P Pulse Ox O2 Delivery O2 Flow Rate FiO2 08/30/17 21:09 99.2 72 12 174/0 99 Room Air 08/30/17 19:58 77 14 197/102 96 Room Air 08/30/17 19:12 71 186/102 98 Room Air 08/30/17 18:45 99.1 73 16 232/118 98 Room Air 08/30/17 17:23 98.0 73 18 232/114 95 Physical Exam Const: [] No distress Head: Atraumatic Eyes: Normal Conjunctiva, EOMI, PERRLA ENT: Normal External Ears, Nose and Mouth. Neck: Full range of motion.. No JVD, carotid pulses visible. Resp: Clear to auscultation bilaterally Cardio: Regular rate and rhythm, no murmurs Abd: Soft, non tender, non distended. Normal bowel sounds Skin: No petechiae or rashes Ext: No cyanosis, or edema, bounding pulses all distal extremities Neur: Awake and alert oriented 3, cranial nerves II through XII intact, no cerebellar deficits, normal gait Psych: Normal Mood and Affect Result Diagram: 08/30/17175608/30/171756 Results 24 hrs Laboratory Tests Test 08/30/17 17:57 White Blood Count 8.410^3/ul Red Blood Count 4.5110^6/ul Hemoglobin 15.1g/dl Hematocrit 42.4% Mean Corpuscular Volume 94.0fl Mean Corpuscular Hemoglobin 33.5pg Mean Corpuscular Hemoglobin Concent 35.6g/dl Red Cell Distribution Width 12.1% Platelet Count 86093^3/UL Mean Platelet Volume 11.8fl Neutrophils % 55.5% Lymphocytes % 35.2% Monocytes % 6.8% Eosinophils % 1.9% Basophils % 0.5% Nucleated Red Blood Cells % 0.0/100WBC Neutrophils # 4.710^3/ul Lymphocytes # 3.010^3/ul Monocytes # 0.610^3/ul Eosinophils # 0.210^3/ul Basophils # 0.010^3/ul Nucleated Red Blood Cells # 0.010^3/ul Sodium Level 142mmol/L Potassium Level 3.8mmol/L Chloride Level 107mmol/L Carbon Dioxide Level 24mmol/L Anion Gap 15 Blood Urea Nitrogen 15mg/dl Creatinine 0.71mg/dl Glucose Level 97mg/dl Calcium Level 9.1mg/dl Troponin I < 0.012ng/ml Current Medications Medications (Trade) Dose Ordered Sig/Ron Route PRN Reason Start Time Stop Time Status Last Admin Dose Admin Nicardipine HCl (Cardene) 30 mg ONCE ONCE PO 08/30/17 18:00 08/30/17 18:01 DC 08/30/17 18:02 Lisinopril (Zestril) 20 mg ONCE ONCE PO 08/30/17 18:00 08/30/17 18:01 DC 08/30/17 18:46 Hydralazine HCl (Apresoline) 50 mg ONCE ONCE PO 08/30/17 21:30 08/30/17 21:31 Procedures/MDM Severe uncontrolled hypertension secondary to no medications for 3 days. Patient was given a nicardipine tablet for acute lowering of his blood pressure. We were able to lower it to an acceptable level without lowering it too much. Is also given his chronic medications hydralazine and lisinopril in the emergency room prevent rebound hypertension after the medication wears off. If the medical interventions have not worked the patient would have to be admitted to the ICU on a drip for control of pressures. I have low suspicion for acute coronary syndrome as patient had a nonischemic EKG and no current cardiac symptoms. Also shows no sign of acute renal injury or acute cerebrovascular accident. Cautioned the patient the need to never run out of his medications again as he could experience a stroke, brain hemorrhage, kidney damage or cardiac damage. He agrees to be more careful in the future. I have given him local community clinics in the case that he cannot contact his primary care doctor tomorrow for another appointment this week. Him strict return precautions to the ER if he is unable to fill his medications first thing in the morning or if he is expressing any concerning symptoms whatsoever. EKG interpretation: Normal sinus rhythm, normal axis, no ST or T-wave changes concerning for acute ischemia, normal intervals. 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 FURTHER EVALUATION AND TREATMENT OF YOUR CONDITION CAN WAIT UNTIL YOU ARE SEEN IN YOUR DOCTORS OFFICE WITHIN THE NEXT 1-2 DAYS. IT IS YOUR RESPONSIBILITY TO MAKE AN APPOINTMENT FOR FOLOW-UP CARE. IF YOU HAVE A PRIMARY DOCTOR --you should call your primary doctor and schedule an appointment IF YOU DO NOT HAVE A PRIMARY DOCTOR YOU CAN CALL OUR PHYSICIAN REFERRAL HOTLINE AT IF YOU CAN NOT AFFORD TO SEE A PHYSICIAN YOU CAN CHOSE FROM THE FOLLOWING [facility] [address] [facility]. [facility] [address] [facility] [facility] [address] [facility] [facility] [address] [facility]. [facility] [facility] [address] [facility]. [facility] [address] Additional Instructions: Llame a chavarria doctor MAANA y sudha ashish mark para el mismo da.Dle a la secretaria que le instruimos hacer esta mark. Llame si chavarria condicin se empeora antes de la mark. OMAR ALCALA DO Aug 30, 2017 21:20
[2017-08-30 21:34] VITALS: BP 170/93; PULSE 74; RESP 14
[2017-08-30 21:42] VITALS: TEMP 99
== END 2017-08-30 21:45 | disposition home or self-care (01) ==
LOC: E/R 16:45
DX: I16.0 Hypertensive urgency (principal); E11.9 Type 2 diabetes mellitus without complications; Z79.4 Long term (current) use of insulin
CPT/HCPCS: 36415; 80048; 84484; 85025; 93005; Z7502; Z7610